=== PATIENT | female | born 1995 | race African-American/Black ===

== ENCOUNTER 2016-07-14 09:19 | Emergency (ER) | payer MEDICAID, OTHER ==
[~2016-07-14] VITALS: Ht 177.8 cm; Wt 100.0 kg
[~2016-07-14 09:19] MED LIST: Crutches; MACR100C2 PO
[2016-07-14 09:58] VITALS: BP 125/65; PULSE 135; RESP 20; TEMP 98.1; O2SAT 100
[2016-07-14 10:01] VITALS: BP 121/58; PULSE 91; RESP 20; TEMP 98; O2SAT 98
[2016-07-14] MEDS ORDERED: SODIUM CHLOR 0.9% 1000 ML INJ 1,000 ML IV ONE (10:45)
[2016-07-14 11:03] LABS: AUTOMATED NEUTROPHIL # 10.6 TH/MM3 (1.8-7.7); BASOPHIL % 0.3 % (0.0-2.0); HEMATOCRIT 38.7 % (35.0-46.0); HEMO FLAGS DIFF FINAL; LYMPH % 8.8 % (9.0-44.0); LYMPHOCYTE # 1.1 TH/MM3 (1.0-4.8); MEAN CELL VOLUME 87.3 FL (80.0-100.0); MEAN CORPUSCULAR HEMOGLOBIN 28.8 PG (27.0-34.0); NEUT % 84.9 % (16.0-70.0); PLATELET COUNT 254 TH/MM3 (150-450); RED BLOOD COUNT 4.43 MIL/MM3 (4.00-5.30); RED CELL DISTRIBUTION WIDTH 13.3 % (11.6-17.2); WHITE BLOOD COUNT 12.5 TH/MM3 (4.0-11.0)
[2016-07-14 11:11] LABS: BICARBONATE 24.6 MEQ/L (21.0-32.0); POTASSIUM 3.6 MEQ/L (3.5-5.1)
[2016-07-14] MEDS ORDERED: KETOROLAC TROMETHAMINE 30 MG/ML (IVP) VIAL IV PUSH ONE (11:15)
[2016-07-14 11:38] LABS: BACTERIA, URINE FEW /hpf; BLOOD, URINE SMALL (NEG); COMMENT (UR) CULTURE INDICATED; CULTURE IF INDICATED CULTURE INDICATED; GLUCOSE,URINE NEG (NEG); KETONE, URINE NEG (NEG); MUCUS URINE FEW /lpf (OCC); NITRITE,URINE NEG (NEG); SQUAMOUS EPITHELIAL CELL URINE 4 /hpf (0-5); URINE COLOR YELLOW (YELLW/STRAW)
[2016-07-14] MEDS ORDERED: AZITHROMYCIN PWD FOR SUSP 1 GM PACKET PO ONE (11:45)
[2016-07-14] MEDS ORDERED: cefTRIAXone 250 MG VIAL IM ONE (11:45)
[2016-07-14] MEDS ORDERED: traMADol HCL 50 MG TAB PO ONE (12:00)
[2016-07-14 12:31] VITALS: RESP 16
[2016-07-14] MEDS ORDERED: CIPR-9 PO (13:06)
--- NOTE | 2016-07-14 13:06 | PD ---
HPI Chief Complaint: Complaint Time Seen by Provider: 10:30 Travel History International Travel<30 days: No Contact w/Intl Traveler<30days: No Traveled to known affect area: No History of Present Illness HPI Patient is a 20 year old female who comes in complaining of lower abdominal pain and vaginal bleeding. She says she started her regular period on 07/09 and was concerned she was having a miscarriage because she was passing clots. She has not missed a period and has not taken a test at home. She says the pain is in her lower abdomen and wraps around to her back. She has not taken anything at home for pain. She denies any dysuria, but says she has pain in her belly when she tries to urinate, and seems to be urinating more often. She denies nausea or vomiting. She denies fever or chills. PFSH Past Medical History Asthma: Yes (when younger) Immunizations Current: Yes ?: Unknown Past Surgical History Surgical History: No Previous Surgery Social History Alcohol Use: No Tobacco Use: No Substance Use: No Allergies-Medications (Allergen,Severity, Reaction): Coded Allergies: No Known Allergies (Verified , 05/12/16) Reported Meds & Prescriptions Reported Meds & Active Scripts Active Cipro (Ciprofloxacin HCl) 500 Mg Tab 500 Mg PO BID 5 Days Macrobid (Nitrofurantoin Monoh/Nitrofur Macro) 100 Mg Cap 100 Mg PO BID 10 Days [Crutches] Review of Systems Except as stated in HPI: all other systems reviewed are Neg General / Constitutional: No: Fever, Chills HENT: No: Headaches, Lightheadedness Cardiovascular: No: Chest Pain or Discomfort Respiratory: No: Shortness of Breath Gastrointestinal: Positive: Abdominal Pain, No: Nausea, Vomiting Genitourinary: Positive: Frequency, Vaginal Bleeding, No: Dysuria Musculoskeletal: No: Myalgias, Edema Skin: No Rash, No Change in Pigmentation Neurologic: No: Weakness, Dizziness Physical Exam Narrative GENERAL: Awake and alert in no acute distress. SKIN: Warm and dry. HEAD: Atraumatic. Normocephalic. EYES: Pupils equal and round. No scleral icterus. ENT: Mucous membranes pink and moist. NECK: Trachea midline. No JVD. CARDIOVASCULAR: Regular rate and rhythm. No murmur appreciated. RESPIRATORY: No accessory muscle use. Clear to auscultation. Breath sounds equal bilaterally. GASTROINTESTINAL: Abdomen soft, nondistended. Mild tenderness across the lower abdomen. No CVA tenderness. PELVIC: Performed in the presence of a female assistant administrator, shows large amount of yellowish discharge. No cervical lesions, No CMT. MUSCULOSKELETAL: No obvious deformities. No clubbing. No cyanosis. No edema. NEUROLOGICAL: Awake and alert. No obvious cranial nerve deficits. Motor grossly within normal limits. Normal speech. PSYCHIATRIC: Appropriate mood and affect; insight and judgment normal. Data Data Last Documented VS Vital Signs Date Time Temp Pulse Resp B/P Pulse Ox O2 Delivery O2 Flow Rate FiO2 07/14/16 12:31 16 07/14/16 09:58 98.1 135 125/65 100 Orders Urinalysis - C+S If Indicated (07/14/16 10:39) Ed Urine Pregnancytest Poc (07/14/16 10:39) Complete Blood Count With Diff (07/14/16 10:39) Basic Metabolic Panel (Bmp) (07/14/16 10:39) Sodium Chlor 0.9% 1000 Ml Inj (Ns 1000 M (07/14/16 10:45) Ketorolac Inj (Toradol Inj) (07/14/16 11:15) Urine Culture (07/14/16 11:05) Wet Prep Profile (07/14/16 11:45) Gc And Chlamydia Pcr (07/14/16 11:45) Ceftriaxone Inj (Rocephin Inj) (07/14/16 11:45) Azithromycin Powd Pack (Zithromax Powd P (07/14/16 11:45) Tramadol (Ultram) (07/14/16 12:00) Labs Laboratory Tests Test 07/14/16 07/14/16 07/14/16 10:35 11:05 11:40 White Blood Count 12.5 TH/MM3 Red Blood Count 4.43 MIL/MM3 Hemoglobin 12.8 GM/DL Hematocrit 38.7 % Mean Corpuscular Volume 87.3 FL Mean Corpuscular Hemoglobin 28.8 PG Mean Corpuscular Hemoglobin 33.0 % Concent Red Cell Distribution Width 13.3 % Platelet Count 254 TH/MM3 Mean Platelet Volume 7.7 FL Neutrophils (%) (Auto) 84.9 % Lymphocytes (%) (Auto) 8.8 % Monocytes (%) (Auto) 6.0 % Eosinophils (%) (Auto) 0.0 % Basophils (%) (Auto) 0.3 % Neutrophils # (Auto) 10.6 TH/MM3 Lymphocytes # (Auto) 1.1 TH/MM3 Monocytes # (Auto) 0.8 TH/MM3 Eosinophils # (Auto) 0.0 TH/MM3 Basophils # (Auto) 0.0 TH/MM3 CBC Comment DIFF FINAL Differential Comment Sodium Level 138 MEQ/L Potassium Level 3.6 MEQ/L Chloride Level 105 MEQ/L Carbon Dioxide Level 24.6 MEQ/L Anion Gap 8 MEQ/L Blood Urea Nitrogen 7 MG/DL Creatinine 0.88 MG/DL Estimat Glomerular Filtration 100 ML/MIN Rate Random Glucose 109 MG/DL Calcium Level 9.0 MG/DL Urine Color YELLOW Urine Turbidity HAZY Urine pH 7.0 Urine Specific [place] 1.029 Urine Protein 30 mg/dL Urine Glucose (UA) NEG mg/dL Urine Ketones NEG mg/dL Urine Occult Blood SMALL Urine Nitrite NEG Urine Bilirubin NEG Urine Urobilinogen 4.0 MG/DL Urine Leukocyte Esterase LARGE Urine RBC 15 /hpf Urine WBC /hpf Urine Squamous Epithelial 4 /hpf Cells Urine Bacteria FEW /hpf Urine Mucus FEW /lpf Microscopic Urinalysis Comment CULTURE INDICATED Clue Cells (Wet Prep) NONE SEEN Vaginal Trichomonas (Wet Prep) NONE SEEN Vaginal Yeast (Wet Prep) NONE SEEN Chlamydia trachomatis DNA DETECTED (PCR) Neisseria gonorrhoeae DNA DETECTED (PCR) MDM Medical Decision Making Medical Screen Exam Complete: Yes Emergency Medical Condition: Yes Differential Diagnosis UTI vs pyelonephritis vs gc/chlamydia vs menorrhagia vs Narrative Course Patient is a 20-year-old female comes in complaining of lower abdominal pain. Exam shows a yellowish vaginal discharge. Labs sent show no acute abnormalities. Urine test is negative. Urinalysis shows bacteria present in the urine. Go swab sent for GC and chlamydia PCR. Patient treated with Rocephin and azithromycin. Will be discharged with a prescription her Cipro. Advised follow -up with [facility]. Advised to refrain from sex for the next week. Advised to use condoms when having sex. Advised to have her partner treated. Advised to return to the ED as needed for any worsening symptoms. Diagnosis Primary Impression: Cervicitis Additional Impression: UTI (urinary tract infection) Qualified Code: N30.00 - Acute cystitis without hematuria Patient Instructions: General Instructions, Sexually Transmitted Diseases (ED) Additional Instructions: Follow up with an product inspection supervisor or at the health department. Refrain from sexual intercourse for the next week. Have your partner get tested/treated for STDs if your tests come back positive (you will receive a letter in the mail if the test is positive). Use condoms when having sexual intercourse. Return to the ED as needed for any worsening symptoms . Scripts Ciprofloxacin (Cipro)500 Mg Par687 Mg PO BID 5 Days Ref 0 Prov:Radha Sharp MD 07/14/16 Disposition: 01 DISCHARGE HOME Condition: Stable Radha Sharp MD Jul 14, 2016 13:06
[2016-07-14 16:13] LABS: CHLAMYDIA PCR DETECTED (NOT DETECT); NEISSERIA PCR DETECTED (NOT DETECT)
== END 2016-07-14 14:30 | disposition home or self-care (01) ==
LOC: NEPE 09:19
DX: N72 Inflammatory disease of cervix uteri (principal); N30.00 Acute cystitis without hematuria; B96.89 Other specified bacterial agents as the cause of diseases classified elsewhere
CPT/HCPCS: 80048; 81001; 84703; 85025; 87086; 87210; 87491; 87591; 96361; 96372; 96374; 99284; J0696; J1885; J7030

== ENCOUNTER 2016-08-30 13:17 | Emergency (ER) | payer MEDICAID, OTHER ==
[~2016-08-30] VITALS: Ht 180.3 cm; Wt 95.4 kg
[~2016-08-30 13:17] MED LIST changes: +CIPR-9 PO
[2016-08-30 13:19] VITALS: BP 123/74; PULSE 75; RESP 12; TEMP 98.3; O2SAT 99
[2016-08-30 15:51] LABS: BACTERIA, URINE OCC /hpf; BLOOD, URINE SMALL (NEG); GLUCOSE,URINE NEG (NEG); KETONE, URINE 10 mg/dL (NEG); MUCUS URINE MOD /lpf (OCC); NITRITE,URINE NEG (NEG); PH, URINE 5.5 (5.0-8.5); URINE COLOR YELLOW (YELLW/STRAW)
[2016-08-30 15:52] LABS: COMMENT (UR) CULTURE INDICATED; CULTURE IF INDICATED CULTURE INDICATED
[2016-08-30] MEDS ORDERED: LIDOCAINE HCL 1% 50 ML VIAL IM ONE (16:00)
[2016-08-30] MEDS ORDERED: AZITHROMYCIN PWD FOR SUSP 1 GM PACKET PO ONE (16:00)
--- NOTE | 2016-08-30 16:09 | PD ---
HPI Chief Complaint: Denial Resolution Specialist Problem/Complaint Time Seen by Provider: 15:40 Travel History International Travel<30 days: No Contact w/Intl Traveler<30days: No Traveled to known affect area: No History of Present Illness HPI Patient is a 21-year-old female who presents to emergency room with complaints of vaginal discharge. She reports that she was recently seen in the emergency room and was treated for an STD, reports that she has been sexually active with her boyfriend, reports that she is unsure if her boyfriend was treated for an STD. Patient reports that she has had increased yellowish vaginal discharge for the past week. Patient reports that she is also having increased dysuria, urinary urgency and frequency for the past 2 days. Patient with no fevers or chills, no nausea or vomiting or abdominal pain at this time. Patient here for pelvic exam and to see if she has a urinary tract infection. PFSH Past Medical History Asthma: Yes (when younger) Diminished Hearing: No Genitourinary: Yes (STD) Immunizations Current: Yes Tetanus Vaccination: > 5 Years Influenza Vaccination: No ?: Not LMP: AUG 03 2016 : 0 Para: 0 Miscarriage: 0 : 0 Past Surgical History Surgical History: No Previous Surgery Social History Alcohol Use: No Tobacco Use: No Substance Use: No Allergies-Medications (Allergen,Severity, Reaction): Coded Allergies: No Known Allergies (Verified , 05/12/16) Reported Meds & Prescriptions Reported Meds & Active Scripts Active Macrobid (Nitrofurantoin Monoh/Nitrofur Macro) 100 Mg Cap 100 Mg PO BID 10 Days Cipro (Ciprofloxacin HCl) 500 Mg Tab 500 Mg PO BID 5 Days Macrobid (Nitrofurantoin Monoh/Nitrofur Macro) 100 Mg Cap 100 Mg PO BID 10 Days [Crutches] Review of Systems General / Constitutional: No: Fever Eyes: No: Visual changes HENT: No: Headaches Cardiovascular: No: Chest Pain or Discomfort Respiratory: No: Shortness of Breath Gastrointestinal: No: Abdominal Pain Genitourinary: Positive: Urgency, Frequency, Dysuria, Discharge, No: Pelvic Pain Musculoskeletal: No: Pain Skin: No Rash Neurologic: No: Weakness Psychiatric: No: Depression Endocrine: No: Polydipsia Hematologic/Lymphatic: No: Easy Bruising Physical Exam Narrative GENERAL: No acute distress, nontoxic SKIN: Warm and dry. HEAD: Atraumatic. Normocephalic. EYES: Pupils equal and round. No scleral icterus. No injection or drainage. ENT: No nasal bleeding or discharge. Mucous membranes pink and moist. NECK: Trachea midline. No JVD. CARDIOVASCULAR: Regular rate and rhythm. No murmur appreciated. RESPIRATORY: No accessory muscle use. Clear to auscultation. Breath sounds equal bilaterally. GASTROINTESTINAL: Abdomen soft, non-tender, nondistended. Hepatic and splenic margins not palpable. : Exam performed with RN bedside, patient with thick whitish discharge, right- sided adnexal tenderness, no CMT tenderness MUSCULOSKELETAL: No obvious deformities. No clubbing. No cyanosis. No edema. NEUROLOGICAL: Awake and alert. No obvious cranial nerve deficits. Motor grossly within normal limits. Normal speech. PSYCHIATRIC: Appropriate mood and affect; insight and judgment normal. Data Data Last Documented VS Vital Signs Date Time Temp Pulse Resp B/P Pulse Ox O2 Delivery O2 Flow Rate FiO2 08/30/16 13:19 98.3 75 12 123/74 99 Orders Gc And Chlamydia Pcr (08/30/16 15:26) Wet Prep Profile (08/30/16 15:26) Urinalysis - C+S If Indicated (08/30/16 15:26) Ed Urine Pregnancytest Poc (08/30/16 15:26) Urine Culture (08/30/16 15:30) Azithromycin Powd Pack (Zithromax Powd P (08/30/16 16:00) Lidocaine 1% Inj (50 Ml) (Xylocaine 1% I (08/30/16 16:00) Ceftriaxone Inj (Rocephin Inj) (08/30/16 16:00) Nitrofurantoin Monohyd Macrocr (Macrobid (08/30/16 17:30) Labs Laboratory Tests Test 08/30/16 08/30/16 15:30 15:50 Urine Color YELLOW Urine Turbidity HAZY Urine pH 5.5 Urine Specific [place] 1.031 Urine Protein TRACE mg/dL Urine Glucose (UA) NEG mg/dL Urine Ketones 10 mg/dL Urine Occult Blood SMALL Urine Nitrite NEG Urine Bilirubin NEG Urine Urobilinogen 4.0 MG/DL Urine Leukocyte Esterase LARGE Urine RBC 29 /hpf Urine WBC 89 /hpf Urine Amorphous Sediment RARE Urine Bacteria OCC /hpf Urine Mucus MOD /lpf Microscopic Urinalysis Comment CULTURE INDICATED Clue Cells (Wet Prep) NONE SEEN Vaginal Trichomonas (Wet Prep) NONE SEEN Vaginal Yeast (Wet Prep) NONE SEEN MDM Medical Decision Making Medical Screen Exam Complete: Yes Emergency Medical Condition: Yes Interpretation(s) Vital Signs Date Time Temp Pulse Resp B/P Pulse Ox O2 Delivery O2 Flow Rate FiO2 08/30/16 13:19 98.3 75 12 123/74 99 Urine negative Differential Diagnosis UTI, cervicitis, bacterial vaginosis, yeast infection Narrative Course 21-year-old female who presents to emergency room with complaints of vaginal discharge. She reports history of STDs, reports that she noticed thick yellow discharge from her vagina for the past week, patient reports that she was diagnosed with STD recently, is sexually active with the same partner who she is unsure if he was ever treated for STD's. Patient concerned that she may reinfected herself with an STD. Patient also complaining of dysuria, urinary urgency and frequency. Pelvic exam performed, patient request to be treated for possible STD. UA pending Patient with urinary tract infection, which with Macrobid. Patient understands need to follow up with cultures from today. Patient understands that if cultures are positive, all sexual partners will need to be treated. Patient will call medical records for follow up with cultures from today. Diagnosis Primary Impression: Cervicitis Additional Impression: UTI (urinary tract infection) Qualified Code: N30.00 - Acute cystitis without hematuria Patient Instructions: General Instructions Additional Instructions: Please follow-up with all cultures from today Return to emergency room as needed If cultures are positive, all sexual partners will need to be treated. Med/Other Pt SpecificInfo: Prescription(s) given Scripts Nitrofurantoin Monohydrate Macrocrystals (Macrobid)100 Mg Eps532 Mg PO BID 10 Days Ref 0 Prov:Kinjal Coronel DO 08/30/16 Disposition: 01 DISCHARGE HOME Condition: Stable Kinjal Coronel DO Aug 30, 2016 16:09
[2016-08-30] MEDS ORDERED: MACR100C2 PO (17:28)
[2016-08-30] MEDS ORDERED: NITROFURANTOIN MONOHYD MACROCR 100 MG CAP PO ONE (17:30)
[2016-08-30 19:58] LABS: CHLAMYDIA PCR NOT DETECTED (NOT DETECT); NEISSERIA PCR DETECTED (NOT DETECT)
== END 2016-08-30 18:17 | disposition home or self-care (01) ==
LOC: NEPA 13:17
DX: N72 Inflammatory disease of cervix uteri (principal); N39.0 Urinary tract infection, site not specified; R30.0 Dysuria; R39.15 Urgency of urination; A54.9 Gonococcal infection, unspecified
CPT/HCPCS: 81001; 84703; 87086; 87210; 87491; 87591; 96372; 99283; J0696

== ENCOUNTER 2016-10-10 22:10 | Emergency (ER) | payer MEDICAID ==
[~2016-10-10] VITALS: Ht 180.3 cm; Wt 98.0 kg
[2016-10-10 22:12] VITALS: BP 133/79; PULSE 100; RESP 16; TEMP 98.4; O2SAT 100
[2016-10-10] MEDS ORDERED: SODIUM CHLOR 0.9% 1000 ML INJ 1,000 ML IV SCH (22:32)
--- NOTE | 2016-10-10 22:37 | PD ---
HPI Chief Complaint: GI Complaint Time Seen by Provider: 22:33 Travel History International Travel<30 days: No Contact w/Intl Traveler<30days: No Traveled to known affect area: No History of Present Illness HPI 21-year-old Afro-[place] female presents the emergency department with sudden onset nausea, vomiting, generalized abdominal pain starting this morning. Patient has felt feverish, but is unknown if she has a true fever. Patient states her last menstrual period started 2 days ago. Patient denies urinary symptoms. Patient denies headache or sore throat. Patient denies cough or chest pain. Patient has had diarrhea through the day today. Patient denies sick exposure recently. Patient has no known drug allergies. PFSH Past Medical History Asthma: Yes (when younger) Diminished Hearing: No Genitourinary: Yes (STD) Immunizations Current: Yes ?: Unknown : 0 Para: 0 Miscarriage: 0 : 0 Past Surgical History Surgical History: No Previous Surgery Social History Alcohol Use: No Tobacco Use: No Substance Use: No Allergies-Medications (Allergen,Severity, Reaction): Coded Allergies: No Known Allergies (Verified , 10/10/16) Reported Meds & Prescriptions Reported Meds & Active Scripts Active No Active Prescriptions or Reported Medications Review of Systems Except as stated in HPI: all other systems reviewed are Neg General / Constitutional: Positive: Chills, No: Fever Eyes: Positive: Photophobia, No: Visual changes HENT: No: Headaches, Vertigo, Lightheadedness, Sore Throat, Rhinitis, Rhinorrhea, Congestion, Nosebleed, Neck Stiffness, Neck Pain, Ear Discharge, Earache Cardiovascular: No: Chest Pain or Discomfort Respiratory: No: Cough, Shortness of Breath, Wheezing Gastrointestinal: Positive: Nausea, Vomiting, Diarrhea, Abdominal Pain (see history present illness.), Loss of Appetite Genitourinary: No: Urgency, Frequency, Dysuria, Decreased Urinary Output, Pelvic Pain, Flank Pain, Discharge Musculoskeletal: No: Myalgias, Pain Skin: No Rash Neurologic: No: Weakness Psychiatric: No: Depression Endocrine: No: Polydipsia Hematologic/Lymphatic: No: Easy Bruising Physical Exam Narrative GENERAL: Patient appears in no acute distress. SKIN: Warm and dry. Normal color. Normal turgor. HEAD: Atraumatic. Normocephalic. EYES: Pupils equal and round. No scleral icterus. No injection or drainage. ENT: No nasal bleeding or discharge. Mucous membranes pink and moist. TMs are clear bilaterally. Throat appears normal. Airway is patent. Uvula is midline. NECK: Trachea midline. No JVD. Supple nontender. CARDIOVASCULAR: Regular rate and rhythm. No murmurs gallops or rubs. RESPIRATORY: No accessory muscle use. Clear to auscultation. Breath sounds equal bilaterally. GASTROINTESTINAL: Abdomen soft, mild nonspecific tenderness, nondistended. No point tenderness or rebound. Hepatic and splenic margins not palpable. No CVA tenderness. MUSCULOSKELETAL: Extremities without clubbing, cyanosis, or edema. No obvious deformities. NEUROLOGICAL: Awake and alert. No obvious cranial nerve deficits. Motor grossly within normal limits. Five out of 5 muscle strength in the arms and legs. Normal speech. PSYCHIATRIC: Appropriate mood and affect; insight and judgment normal. Data Data Last Documented VS Vital Signs Date Time Temp Pulse Resp B/P Pulse Ox O2 Delivery O2 Flow Rate FiO2 10/10/16 22:45 96 Room Air 10/10/16 22:12 98.4 100 16 133/79 Orders Complete Blood Count With Diff (10/10/16 22:32) Comprehensive Metabolic Panel (10/10/16 22:32) Lipase (10/10/16 22:32) Urinalysis - C+S If Indicated (10/10/16 22:32) Iv Access Insert/Monitor (10/10/16 22:32) Ecg Monitoring (10/10/16 22:32) Oximetry (10/10/16 22:32) NPO (10/10/16 22:32) Ondansetron Inj (Zofran Inj) (10/10/16 22:45) Sodium Chlor 0.9% 1000 Ml Inj (Ns 1000 M (10/10/16 22:32) Sodium Chloride 0.9% Flush (Ns Flush) (10/10/16 22:45) Ketorolac Inj (Toradol Inj) (10/10/16 22:45) Ed Urine Pregnancytest Poc (10/10/16 22:32) Influenzae A/B Antigen (10/10/16 22:32) MDM Medical Decision Making Medical Screen Exam Complete: Yes Emergency Medical Condition: Yes Differential Diagnosis Acute nausea and vomiting. Gastroenteritis. Gallbladder disease. Influenza. Urinary tract infection. Narrative Course Patient is medically stable at time of exam. Labs ordered including CBC, CMP, lipase, and urinalysis as well as urinary test. IV access is obtained patient is given 30 mg Toradol IV as well as 4 mg Zofran IV. Rapid influenza test is sent to the lab. 2300 hrs. all the above are pending. Patient is discussed and care is transferred to Dr. Elkins. Scripts No Active Prescriptions or Reported Meds Condition: Dylan Warren Oct 10, 2016 22:37
[2016-10-10 22:45] VITALS: O2SAT 96
[2016-10-10] MEDS ORDERED: ONDANSETRON HCL 4 MG/2 ML VIAL IVP ONE (22:45)
[2016-10-10] MEDS ORDERED: SODIUM CHLORIDE 0.9% FLUSH 10 ML FLUSH IV FLUSH PRN (22:45)
[2016-10-10] MEDS ORDERED: KETOROLAC TROMETHAMINE 30 MG/ML (IVP) VIAL IVP ONE (22:45)
[2016-10-10 23:01] LABS: AUTOMATED NEUTROPHIL # 4.6 TH/MM3 (1.8-7.7); BASOPHIL % 0.2 % (0.0-2.0); HEMATOCRIT 41.1 % (35.0-46.0); HEMO FLAGS DIFF FINAL; LYMPH % 8.8 % (9.0-44.0); LYMPHOCYTE # 0.5 TH/MM3 (1.0-4.8); MEAN CORPUSCULAR HEMOGLOBIN 28.5 PG (27.0-34.0); MEAN CORPUSCULAR HGB CONC 32.7 % (32.0-36.0); MONO % 4.4 % (0.0-8.0); NEUT % 86.6 % (16.0-70.0); PLATELET COUNT 218 TH/MM3 (150-450); RED BLOOD COUNT 4.73 MIL/MM3 (4.00-5.30); RED CELL DISTRIBUTION WIDTH 13.2 % (11.6-17.2); WHITE BLOOD COUNT 5.3 TH/MM3 (4.0-11.0)
[2016-10-10 23:07] LABS: BLOOD, URINE NEG (NEG); COMMENT (UR) CULT NOT INDICATED; CULTURE IF INDICATED CULT NOT INDICATED; GLUCOSE,URINE NEG (NEG); KETONE, URINE 10 mg/dL (NEG); MUCUS URINE FEW /lpf (OCC); NITRITE,URINE NEG (NEG); PH, URINE 5.5 (5.0-8.5); SQUAMOUS EPITHELIAL CELL URINE 1 /hpf (0-5); URINE COLOR YELLOW (YELLW/STRAW)
[2016-10-10 23:14] LABS: ANION GAP 8 MEQ/L (5-15); AST (GOT) 15 U/L (16-38); BICARBONATE 27.1 MEQ/L (21.0-32.0); BLOOD UREA NITROGEN 5 MG/DL (7-18); CHLORIDE 102 MEQ/L (98-107); GLOMERULAR FILTRATION RATE 112 ML/MIN (>89); POTASSIUM 3.3 MEQ/L (3.5-5.1); SODIUM (NA) 137 MEQ/L (136-145)
[2016-10-10 23:18] LABS: ALKALINE PHOSPHATASE 71 U/L (45-117); ALT (GPT) 19 U/L (9-42)
[2016-10-10] MEDS ORDERED: ZOFR4TAB3 SL (23:26)
--- NOTE | 2016-10-10 23:27 | PD ---
Data Data Last Documented VS Vital Signs Date Time Temp Pulse Resp B/P Pulse Ox O2 Delivery O2 Flow Rate FiO2 10/11/16 01:16 18 10/10/16 22:45 96 Room Air 10/10/16 22:12 98.4 100 133/79 Orders Complete Blood Count With Diff (10/10/16 22:32) Comprehensive Metabolic Panel (10/10/16 22:32) Lipase (10/10/16 22:32) Urinalysis - C+S If Indicated (10/10/16 22:32) Iv Access Insert/Monitor (10/10/16 22:32) Ecg Monitoring (10/10/16 22:32) Oximetry (10/10/16 22:32) NPO (10/10/16 22:32) Ondansetron Inj (Zofran Inj) (10/10/16 22:45) Sodium Chlor 0.9% 1000 Ml Inj (Ns 1000 M (10/10/16 22:32) Sodium Chloride 0.9% Flush (Ns Flush) (10/10/16 22:45) Ketorolac Inj (Toradol Inj) (10/10/16 22:45) Ed Urine Pregnancytest Poc (10/10/16 22:32) Influenzae A/B Antigen (10/10/16 22:32) Potassium Chloride (Kcl) (10/11/16 00:00) Acetamin-Hydrocod 325-5 Mg ([place] 5-325 (10/11/16 00:00) Oseltamivir (Tamiflu) (10/11/16 00:00) Labs Laboratory Tests Test 10/10/16 22:40 White Blood Count 5.3 TH/MM3 Red Blood Count 4.73 MIL/MM3 Hemoglobin 13.5 GM/DL Hematocrit 41.1 % Mean Corpuscular Volume 87.0 FL Mean Corpuscular Hemoglobin 28.5 PG Mean Corpuscular Hemoglobin 32.7 % Concent Red Cell Distribution Width 13.2 % Platelet Count 218 TH/MM3 Mean Platelet Volume 7.2 FL Neutrophils (%) (Auto) 86.6 % Lymphocytes (%) (Auto) 8.8 % Monocytes (%) (Auto) 4.4 % Eosinophils (%) (Auto) 0.0 % Basophils (%) (Auto) 0.2 % Neutrophils # (Auto) 4.6 TH/MM3 Lymphocytes # (Auto) 0.5 TH/MM3 Monocytes # (Auto) 0.2 TH/MM3 Eosinophils # (Auto) 0.0 TH/MM3 Basophils # (Auto) 0.0 TH/MM3 CBC Comment DIFF FINAL Differential Comment Urine Color YELLOW Urine Turbidity CLEAR Urine pH 5.5 Urine Specific [place] 1.024 Urine Protein TRACE mg/dL Urine Glucose (UA) NEG mg/dL Urine Ketones 10 mg/dL Urine Occult Blood NEG Urine Nitrite NEG Urine Bilirubin NEG Urine Urobilinogen LESS THAN 2.0 MG/DL Urine Leukocyte Esterase NEG Urine WBC LESS THAN 1 /hpf Urine Squamous Epithelial 1 /hpf Cells Urine Amorphous Sediment RARE Urine Mucus FEW /lpf Microscopic Urinalysis Comment CULT NOT INDICATED Sodium Level 137 MEQ/L Potassium Level 3.3 MEQ/L Chloride Level 102 MEQ/L Carbon Dioxide Level 27.1 MEQ/L Anion Gap 8 MEQ/L Blood Urea Nitrogen 5 MG/DL Creatinine 0.79 MG/DL Estimat Glomerular Filtration 112 ML/MIN Rate Random Glucose 100 MG/DL Calcium Level 8.9 MG/DL Total Bilirubin 1.0 MG/DL Aspartate Amino Transf 15 U/L (AST/SGOT) Alanine Aminotransferase 19 U/L (ALT/SGPT) Alkaline Phosphatase 71 U/L Total Protein 7.4 GM/DL Albumin 3.6 GM/DL Lipase 115 U/L [facility] Medical Record Reviewed: Yes Supervised Visit with SWETA: Yes Narrative Course I, Dr. Elkins, have reviewed the advance practice practitioner's documentation and am in agreement, met with the patient face to face, made the diagnosis, and the medical decision making was done by me. *My assessment and Findings: CBC & BMP Diagram 10/10/16 22:40 LFTs and lipase normal Urinalysis no UTI Influenza study is negative The patient has nausea vomiting diarrhea. The workup is essentially unremarkable. On reassessment prior to discharge at approximately 11:25 PM patient was resting comfortably on bed. Results of workup were discussed. Patient endorsed myalgias. Symptoms could reflect influenza. Micro results could be false negative. Fortunately her presentation and workup is within acceptable limits of the exam is benign. She has been walking in the ER and conversing with her friend casually during her stay. Return precautions discussed. Diagnosis Primary Impression: Nausea, vomiting and diarrhea Additional Impression: MYALGIA Referrals: Primary Care Physician 2 days Additional Instruction: You have a choice when it comes to health care, and we are glad that you chose [facility]. Hopefully, we have met your expectations on today's visit. You are welcome to return to [facility] at any time, as we are committed to meeting the health care needs of our community. Med/Other Pt SpecificInfo: Prescription(s) given Scripts Oseltamivir (Tamiflu)75 Mg Cap75 Mg PO BID 7 Days Ref 0 Prov:Eric Elkins MD 10/10/16 Ondansetron Odt (Zofran Odt)4 Mg Tab4 Mg SL Q8HR PRN (Nausea/Vomiting) #6 TAB Ref 0 Prov:Eric Elkins MD 10/10/16 Disposition: 01 DISCHARGE HOME Condition: Stable Eric Elkins MD Oct 10, 2016 23:27
[2016-10-10] MEDS ORDERED: OSEL75 PO (23:58)
[2016-10-11] MEDS ORDERED: ACETAMINOPHEN/HYDROcodone 325 MG/5 MG TAB PO ONE
[2016-10-11] MEDS ORDERED: OSELTAMIVIR PHOSPHATE 75 MG CAP PO ONE
[2016-10-11] MEDS ORDERED: POTASSIUM CHLORIDE 20 MEQ CONTROLLED RELEASE TAB PO ONE
[2016-10-11 01:16] VITALS: RESP 18
== END 2016-10-11 01:17 | disposition home or self-care (01) ==
LOC: NEPC 22:10
DX: R11.2 Nausea with vomiting, unspecified (principal); R19.7 Diarrhea, unspecified; M79.1 Myalgia; R10.84 Generalized abdominal pain; Z87.448 Personal history of other diseases of urinary system
CPT/HCPCS: 80053; 81001; 83690; 84703; 85025; 87804; 96361; 96374; 96375; 99284; J1885; J2405; J7030

== ENCOUNTER 2016-12-07 00:34 | Emergency (ER) | payer MEDICAID ==
[~2016-12-07] VITALS: Ht 172.7 cm; Wt 72.0 kg
[~2016-12-07 00:34] MED LIST changes: -CIPR-9 PO; -Crutches; -MACR100C2 PO; +OSEL75 PO; +ZOFR4TAB3 SL
[2016-12-07 00:37] VITALS: BP 124/76; PULSE 73; RESP 16; TEMP 98.8; O2SAT 100
[2016-12-07] MEDS ORDERED: VALA1TAB PO (01:14)
[2016-12-07] MEDS ORDERED: GABA100C4 PO (01:14)
--- NOTE | 2016-12-07 01:15 | PD ---
HPI Chief Complaint: Bite or Sting Time Seen by Provider: 01:09 Travel History International Travel<30 days: No Contact w/Intl Traveler<30days: No Traveled to known affect area: No History of Present Illness HPI Patient is a 21-year-old female presenting to emergency evaluation of a possible bug bite to her left back. Patient states the symptoms today. She states it's burning and itchy. Denies any other complaints at this time. PFSH Past Medical History Medical History: Denies Significant Hx Asthma: Yes (when younger) Diminished Hearing: No Genitourinary: Yes (STD) Immunizations Current: Yes Tetanus Vaccination: < 5 Years Influenza Vaccination: No ?: Unknown LMP: 12/04/2016 : 0 Para: 0 Miscarriage: 0 : 0 Past Surgical History Surgical History: No Previous Surgery Social History Alcohol Use: No Tobacco Use: No Substance Use: No Allergies-Medications (Allergen,Severity, Reaction): Coded Allergies: No Known Allergies (Verified , 12/07/16) Reported Meds & Prescriptions Reported Meds & Active Scripts Active No Active Prescriptions or Reported Medications Review of Systems Except as stated in HPI: all other systems reviewed are Neg Skin: Positive Rash, Positive Itching, Positive Lesions Physical Exam Narrative GENERAL: Well-nourished, well-developed patient. SKIN: Focused skin assessment warm/dry. There is an area of clustered small vesicles to the left lower back in a linear pattern. Mild erythema surrounding. HEAD: Normocephalic. EYES: No scleral icterus. No injection or drainage. NECK: Supple, trachea midline. No JVD or lymphadenopathy. CARDIOVASCULAR: Regular rate and rhythm without murmurs, gallops, or rubs. RESPIRATORY: Breath sounds equal bilaterally. No accessory muscle use. GASTROINTESTINAL: Abdomen soft, non-tender, nondistended. MUSCULOSKELETAL: No cyanosis, or edema. BACK: Nontender without obvious deformity. No CVA tenderness. Data Data Last Documented VS Vital Signs Date Time Temp Pulse Resp B/P Pulse Ox O2 Delivery O2 Flow Rate FiO2 12/07/16 00:37 98.8 73 16 124/76 100 Room Air MDM Medical Decision Making Medical Screen Exam Complete: Yes Emergency Medical Condition: Yes Interpretation(s) Vital Signs Date Time Temp Pulse Resp B/P Pulse Ox O2 Delivery O2 Flow Rate FiO2 12/07/16 00:37 98.8 73 16 124/76 100 Room Air Differential Diagnosis Insect bite versus allergic reaction versus contact dermatitis versus folliculitis versus impetigo versus shingles Narrative Course Patient is a 21-year-old female presenting to emergency department evaluation of possible insect bite to her back. Physical examination appears consistent with herpes zoster. Patient will be provided with a prescription for valacyclovir and gabapentin. She is advised to avoid scratching and keep area clean, dry. Patient was advised that is highly contagious and was advised to maintain strict hand washing cautions. She verbalized understanding of instructions. She was further advised that viruses self-limiting. She is encouraged return to emergency department for any new or worsening symptoms. She should follow-up with her primary doctor. Patient is stable for discharge. Diagnosis Primary Impression: Herpes zoster Qualified Code: B02.9 - Herpes zoster without complication Referrals: [facility] Primary Care Physician Patient Instructions: General Instructions, Shingles (ED) Additional Instructions: Follow-up with her primary doctor or at the [facility] Take medications as directed Keep area clean and dry, do not scratch or apply ointment. May cover with gauze to avoid scratching. Do not use occlusive dressing Return to emergency department for any new or worsening symptoms Med/Other Pt SpecificInfo: Prescription(s) given Scripts Gabapentin 100 Mg [id number] Mg PO TID PRN (PAIN SCALE 1 TO 10) 10 Days Ref 0 Prov:Marylou Burrows 12/07/16 Valacyclovir 1 Gm Tab1,000 Mg PO TID 7 Days Ref 0 Prov:Marylou Burrows 12/07/16 Disposition: 01 DISCHARGE HOME Condition: Stable Marylou Burrows December 07, 2016 01:15
[2016-12-07] MEDS ORDERED: valACYclovir HCL 500 MG TAB PO ONE (02:00)
[2016-12-07] MEDS ORDERED: GABAPENTIN 100 MG CAP PO ONE (02:00)
== END 2016-12-07 02:35 | disposition home or self-care (01) ==
LOC: NEPD 00:34
DX: B02.9 Zoster without complications (principal)
CPT/HCPCS: 99283

== ENCOUNTER 2017-03-11 09:01 | Emergency (ER) | payer MEDICAID ==
[~2017-03-11] VITALS: Ht 170.2 cm; Wt 80.0 kg
[~2017-03-11 09:01] MED LIST changes: +GABA100C4 PO; -OSEL75 PO; +VALA1TAB PO; -ZOFR4TAB3 SL
[2017-03-11 09:03] VITALS: BP 130/79; PULSE 82; RESP 20; TEMP 98.7; O2SAT 99
[2017-03-11 10:05] LABS: BLOOD, URINE NEG (NEG); CALCIUM OXALATE CRYSTALS,URINE MANY /hpf; COMMENT (UR) CULT NOT INDICATED; CULTURE IF INDICATED CULT NOT INDICATED; GLUCOSE,URINE NEG (NEG); KETONE, URINE NEG (NEG); MUCUS URINE FEW /lpf (OCC); NITRITE,URINE NEG (NEG); PH, URINE 5.5 (5.0-8.5); SQUAMOUS EPITHELIAL CELL URINE 1 /hpf (0-5); URINE COLOR YELLOW (YELLW/STRAW)
[2017-03-11] MEDS ORDERED: cefTRIAXone 250 MG VIAL IM ONE (10:45)
[2017-03-11] MEDS ORDERED: LIDOCAINE HCL 1% 50 ML VIAL IM ONE (10:45)
[2017-03-11] MEDS ORDERED: AZITHROMYCIN PWD FOR SUSP 1 GM PACKET PO ONE (10:45)
[2017-03-11] MEDS ORDERED: metroNIDAZOLE 500 MG TAB PO ONE (10:45)
[2017-03-11] MEDS ORDERED: ONDANSETRON ODT 4 MG TAB PO ONE (10:45)
--- NOTE | 2017-03-11 10:45 | PD ---
HPI Chief Complaint: Investment Representative Problem/Complaint Time Seen by Provider: 09:27 Travel History International Travel<30 days: No Contact w/Intl Traveler<30days: No Traveled to known affect area: No History of Present Illness HPI Is a 21-year-old woman presents emergent problem with vaginal irritation that started after intercourse 3 days ago. She has pain and pruritus of the range for this. She is a thin yellow discharge. She sexually active with men only, 3 partners in the past 6 months, history of STDs. No abdominal pain. No dysuria. No other complaints. History Past Medical History Medical History: Denies Significant Hx Tetanus Vaccination: > 5 Years Influenza Vaccination: No LMP: Feb 21, 2017 : 0 Para: 0 Past Surgical History Surgical History: No Previous Surgery Social History Alcohol Use: No Tobacco Use: No Allergies-Medications (Allergen,Severity, Reaction): Coded Allergies: No Known Allergies (Verified , 03/11/17) Reported Meds & Prescriptions Reported Meds & Active Scripts Active Review of Systems Except as stated in HPI: all other systems reviewed are Neg Physical Exam Narrative GENERAL: Well-appearing 21 year-old woman, no acute distress. SKIN: Focused skin assessment warm/dry. HEAD: Atraumatic. Normocephalic. EYES: Pupils equal and round. No scleral icterus. No injection or drainage. ENT: No nasal bleeding or discharge. Mucous membranes pink and moist. NECK: Trachea midline. No JVD. CARDIOVASCULAR: Regular rate and rhythm. No murmur appreciated. RESPIRATORY: No accessory muscle use. Clear to auscultation. Breath sounds equal bilaterally. GASTROINTESTINAL: Abdomen soft, non-tender, nondistended. Hepatic and splenic margins not palpable. MUSCULOSKELETAL: No obvious deformities. No clubbing. No cyanosis. No edema. NEUROLOGICAL: Awake and alert. MUSIC INTERN: Normal external female genitalia. No obvious irritation lesions or rashes. Thin vaginal discharge. Normal cervix. No cervical motion tenderness adnexal masses or uterine enlargement. Data Data Last Documented VS Vital Signs Date Time Temp Pulse Resp B/P (MAP) Pulse Ox O2 Delivery O2 Flow Rate FiO2 03/11/17 09:03 98.7 82 20 130/79 (96) 99 Room Air Orders Orders Gc And Chlamydia Pcr (03/11/17 09:27) Wet Prep Profile (03/11/17 09:27) Urinalysis - C+S If Indicated (03/11/17 09:27) Ed Urine Pregnancytest Poc (03/11/17 09:27) Azithromycin Powd Pack (Zithromax Powd P (03/11/17 10:45) Ceftriaxone Inj (Rocephin Inj) (03/11/17 10:45) Lidocaine 1% Inj (50 Ml) (Xylocaine 1% I (03/11/17 10:45) Metronidazole (Flagyl) (03/11/17 10:45) Ondansetron Odt (Zofran Odt) (03/11/17 10:45) Labs Laboratory Tests Test 03/11/17 09:30 Urine Color YELLOW Urine Turbidity HAZY Urine pH 5.5 Urine Specific [place] 1.035 Urine Protein TRACE mg/dL Urine Glucose (UA) NEG mg/dL Urine Ketones NEG mg/dL Urine Occult Blood NEG Urine Nitrite NEG Urine Bilirubin NEG Urine Urobilinogen 2.0 MG/DL Urine Leukocyte Esterase TRACE Urine RBC 1 /hpf Urine WBC 1 /hpf Urine Squamous Epithelial Cells 1 /hpf Urine Calcium Oxalate Crystals MANY /hpf Urine Mucus FEW /lpf Microscopic Urinalysis Comment CULT NOT INDICATED Clue Cells (Wet Prep) NONE SEEN Vaginal Trichomonas (Wet Prep) NONE SEEN Vaginal Yeast (Wet Prep) NONE SEEN MDM Medical Decision Making Medical Screen Exam Complete: Yes Emergency Medical Condition: Yes Differential Diagnosis STD, cervicitis, vaginitis, other Narrative Course Medical decision making 21-year-old woman with cervicitis vaginitis symptoms. Wet prep negative. Urine negative. Recommend empiric treatment. Diagnosis Primary Impression: Cervicitis Additional Instructions: Followup with your housekeeper cleaning cooking for routine MUSIC INTERN care and followup testing for other sexually transmitted infection such as HIV, hepatitis, syphilis. Any sexual partners you have should be tested and treated as well. You should not have sex until you have no symptoms, and your partners tested and treated as well. Med/Other Pt SpecificInfo: No Change to Meds Disposition: 01 DISCHARGE HOME Condition: Martinez Díaz MD Mar 11, 2017 10:45
[2017-03-11 12:44] LABS: CHLAMYDIA PCR NOT DETECTED (NOT DETECT); NEISSERIA PCR NOT DETECTED (NOT DETECT)
== END 2017-03-11 11:39 | disposition home or self-care (01) ==
LOC: NEPD 09:01
DX: N72 Inflammatory disease of cervix uteri (principal)
CPT/HCPCS: 81001; 84703; 87210; 87491; 87591; 96372; 99284; J0696